=== PATIENT | male | born 1970 | race Two or more races ===

== ENCOUNTER 2025-11-07 23:16 | Inpatient (IN) | payer MEDICAID ==
[~2025-11-07] VITALS: Ht 180.3 cm; Wt 133.6 kg
[~2025-11-07 23:16] MED LIST: CEFT2FRO2 IV
[2025-11-08] VITALS (8 sets, daily range): BP systolic 103–120; BP diastolic 70–91; TEMP 97.5–99.1; O2SAT 97–100
[2025-11-08] MEDS ORDERED: CEFTRIAXONE 2 G in IV D5W 100 ML IV SCH (00:30)
[2025-11-08] MEDS ORDERED: ACETAMINOPHEN 325 MG TABLET PO PRN (00:30)
[2025-11-08] MEDS ORDERED: MAG HYDROX/AL HYDROX/SIMETH 30 ML UDC PO PRN (00:30)
[2025-11-08] MEDS ORDERED: MAGNESIUM HYDROXIDE 30 ML UDC PO PRN (00:30)
[2025-11-08] MEDS ORDERED: Z GUARD REMEDY 4 OZ OINT TP PRN (00:30)
[2025-11-08] MEDS ORDERED: ONDANSETRON HCL/PF 4 MG/2 ML VIAL IVP PRN (00:30)
[2025-11-08 06:35] LABS: CALCIUM, SERUM 7.9 mg/dL (8.5-10.1); CREATININE 1.2 mg/dL (0.6-1.3); SODIUM SERUM 140.0 mmol/L (136-145); UREA NITROGEN, BLOOD 22.0 mg/dL (7-18)
[2025-11-08 06:37] LABS: PLATELET COUNT (AUTO) 236 K/uL (150-450); RED BLOOD CELL COUNT(AUTO) 4.72 MIL/uL (4.5-6.0); RED CELL DISTRIBUTION WIDTH 18.8 % (11.5-15.0); WHITE BLOOD COUNT (AUTO) 7.0 K/uL (4.3-11.0)
[2025-11-08 06:43] LABS: INR 1.31 (0.91-1.10)
[2025-11-08] MEDS: PANTOPRAZOLE 40 MG VIAL IV SCH (08:27)
[2025-11-08] MEDS: FUROSEMIDE 40 MG/4 ML VIAL IV SCH (08:27)
[2025-11-08] MEDS: ENOXAPARIN SODIUM 40 MG/0.4 ML DISP.SYRIN SQ SCH (08:33)
[2025-11-08] MEDS: ASPIRIN 81 MG TAB.CHEW PO SCH (10:00)
[2025-11-08] MEDS ORDERED: ENOXAPARIN SODIUM 40 MG/0.4 ML DISP.SYRIN SQ SCH (10:00)
[2025-11-08] MEDS ORDERED: ATOR40TA PO (10:18)
[2025-11-08] MEDS ORDERED: INSU100V7 SQ (10:18)
[2025-11-08] MEDS ORDERED: MAGN400O6 PO (10:18)
[2025-11-08] MEDS ORDERED: ONDA4VIA52 IV (10:18)
[2025-11-08] MEDS ORDERED: INSU100V3 SQ (10:18)
[2025-11-08] MEDS ORDERED: FURO10VI IV (10:18)
[2025-11-08] MEDS ORDERED: DEXT50DI8 IV (10:18)
[2025-11-08] MEDS ORDERED: BLOO-668 IN (10:18)
[2025-11-08] MEDS ORDERED: ALLA266C2 TP (10:18)
[2025-11-08] MEDS ORDERED: ASPI-1169 PO (10:18)
[2025-11-08] MEDS ORDERED: ACET325T53 PO (10:18)
[2025-11-08] MEDS ORDERED: ENOX40DI SQ (10:18)
[2025-11-08 11:58] LABS: PHOSPHORUS 4.5 mg/dL (2.5-4.9)
[2025-11-08] MEDS: METOPROLOL TARTRATE 50 MG TABLET PO SCH (12:00)
[2025-11-08 12:08] LABS: IRON, SERUM 20 ug/dl (50-175)
[2025-11-08] MEDS ORDERED: IODIXANOL 150 ML IV ONE (12:09)
[2025-11-08] MEDS ORDERED: LIDOCAINE HCL/MPF 1% 30 ML VIAL IJ ONE (12:09)
[2025-11-08] MEDS ORDERED: NITROGLYCERIN IN 5 % DEXTROSE 250 ML IV ONE (12:10)
[2025-11-08 12:23] LABS: LDL 72 mg/dL (0-99)
[2025-11-08] MEDS ORDERED: IV NS 0.9% 500 ML IV ONE (12:31)
[2025-11-08] MEDS ORDERED: IV SET PRIMARY PUMP SET 1 EA INFUS.SET MC ONE (12:31)
[2025-11-08] MEDS ORDERED: MIDAZOLAM HCL 2 MG/2ML VIAL ONE (12:57)
[2025-11-08] MEDS ORDERED: FENTANYL PF 100MCG/2ML AMPUL ONE (12:57)
[2025-11-08] MEDS ORDERED: HEPARIN SODIUM, PORCINE 1,000 UNIT/ML VIAL ONE (13:09)
[2025-11-08] MEDS ORDERED: IODIXANOL 320MG/ML 100 ML IV ONE (13:24)
[2025-11-08] MEDS ORDERED: DEXTROSE 50%-WATER 50 ML DISP.SYRIN IV PRN (16:30)
[2025-11-08] MEDS: BLOOD SUGAR DIAGNOSTIC 1 EACH STRIP IN SCH (17:41)
[2025-11-08] MEDS: INSULIN REGULAR, HUMAN 100 UNIT/ML 3 ML VIAL SQ PRN (17:55)
[2025-11-08] MEDS: CEFTRIAXONE 2 G in IV D5W 100 ML IV SCH (21:28)
[2025-11-09] VITALS: BP 92/60; TEMP 97.9; O2SAT 100
[2025-11-09 04:00] VITALS: BP 98/69; TEMP 98.4; O2SAT 100
[2025-11-09 07:00] VITALS: BP 94/68; TEMP 97.3; O2SAT 99
[2025-11-09 07:40] LABS: PLATELET COUNT (AUTO) 235 K/uL (150-450); RED BLOOD CELL COUNT(AUTO) 4.48 MIL/uL (4.5-6.0); RED CELL DISTRIBUTION WIDTH 18.8 % (11.5-15.0); WHITE BLOOD COUNT (AUTO) 6.5 K/uL (4.3-11.0)
[2025-11-09 08:02] LABS: CALCIUM, SERUM 7.8 mg/dL (8.5-10.1); CREATININE 1.2 mg/dL (0.6-1.3); PHOSPHORUS 4.5 mg/dL (2.5-4.9); SODIUM SERUM 137.0 mmol/L (136-145); UREA NITROGEN, BLOOD 25.0 mg/dL (7-18)
[2025-11-09 11:30] VITALS: BP 118/85; TEMP 97.2; O2SAT 97
[2025-11-09 11:51] VITALS: BP 118/85
[2025-11-10] MEDS ORDERED: PANTOPRAZOLE 40 MG TABLET.DR PO SCH (09:00)
== END 2025-11-09 15:20 | disposition home or self-care (01) | DRG 191 ==
LOC: TELE 23:16 → MED 11-09 11:21
PROC: 4A023N7 Measurement of Cardiac Sampling and Pressure, Left Heart, Percutaneous Approach (ICD-10-PCS; principal; 2025-11-08)
PROC: B211YZZ Fluoroscopy of Multiple Coronary Arteries using Other Contrast (ICD-10-PCS; 2025-11-08)
DX: I25.10 Atherosclerotic heart disease of native coronary artery without angina pectoris (principal); I42.9 Cardiomyopathy, unspecified; E11.9 Type 2 diabetes mellitus without complications; E66.01 Morbid (severe) obesity due to excess calories; I10 Essential (primary) hypertension; E78.5 Hyperlipidemia, unspecified; Z79.4 Long term (current) use of insulin; Z68.41 Body mass index [BMI] 40.0-44.9, adult; G47.33 Obstructive sleep apnea (adult) (pediatric)
CPT/HCPCS: 36415; 71045-TC; 80048-TC; 80061-TC; 82728-TC; 82962-TC; 83540-TC; 83735-TC; 84100-TC; 84439-TC; 84443-TC; 84484-TC; 85025-TC; 85610-TC; 85730-TC; 86850-TC; 87081-TC; A4223; G0378; J0696; J1644; J1650; J1815; J1938; J2250; J2470; J3010; J3490; J7040; J7050; J7060; Q9967